=== PATIENT | male | born 1945 | race Caucasian/White ===

== ENCOUNTER 2020-02-01 23:22 | Emergency (ER) | payer MEDICARE, BC ==
[~2020-02-01] VITALS: Ht 172.7 cm; Wt 74.8 kg
--- NOTE | 2020-02-01 23:31 | NUR ---
PT CAME TO THE ER C/O RFA WOUND W/ ABSCESS AND SWELLING X 2 DAYS. PT AAOX4, VSS, RESPIRATIONS EVEN AND UNLABORED ON RA W/ NAD NOTED. PT CONNECTED TO THE MONITOR AND POX.
--- NOTE | 2020-02-01 23:36 | NUR ---
DR PARSONS AT BEDSIDE FOR EVAL
[2020-02-01] MEDS ORDERED: CEFTRIAXONE 1GM BAG (ER ONLY) 50 ML IV ONE (23:48)
[2020-02-01] MEDS ORDERED: TDAP [DIPH/PERTUSSIS/TET] 0.5 ML VIAL IM ONE (23:49)
[2020-02-01] MEDS ORDERED: VANCOMYCIN 1 GM VIAL ONE (23:49)
[2020-02-02] MEDS ORDERED: TDAP [DIPH/PERTUSSIS/TET] 0.5 ML VIAL IM ONE
[2020-02-02] MEDS ORDERED: CEFTRIAXONE 1 G in IV D5W 50 ML IV ONE ×2
[2020-02-02] MEDS ORDERED: VANCOMYCIN 1 GM in IV D5W 250 ML IV ONE ×2
[2020-02-02 00:08] LABS: BASOPHILS % (AUTO) 0.5 % (0.0-2.0); EOSINOPHILS % (AUTO) 1.2 % (0.0-6.0); HEMATOCRIT 42 % (39-51); HEMOGLOBIN 14.1 g/dL (13.5-17.5); LYMPHOCYTES # (AUTO) 1.5 /CMM (0.8-4.8); LYMPHOCYTES % (AUTO) 15.2 % (20.0-44.0); MEAN CORPUSCULAR HGB CONC 33 g/dl (31.0-36.0); MEAN CORPUSCULAR VOLUME 96 fL (80-96); MONOCYTES # (AUTO) 1.1 /CMM (0.1-1.30); NEUTROPHILS # (AUTO) 6.9 /CMM (1.8-8.9); NEUTROPHILS % (AUTO) 72.1 % (43.0-81.0); PLATELET COUNT (AUTO) 169 /CMM (150-450); RED BLOOD CELL COUNT(AUTO) 4.41 MIL/uL (4.5-6.0); WHITE BLOOD COUNT (AUTO) 9.6 K/uL (4.3-11.0)
[2020-02-02 01:34] VITALS: BP 147/84
--- NOTE | 2020-02-02 01:34 | NUR ---
Patient discharged to home in stable condition. Written and verbal after care instructions given. Patient verbalizes understanding of instruction.IV removed. Catheter intact and site benign. Pressure and 4x4 applied to site. No bleeding noted.
[2020-02-03] MEDS ORDERED: ATOR10TA PO (15:03)
[2020-02-03] MEDS ORDERED: CEPH500C2 PO (15:03)
[2020-02-03] MEDS ORDERED: SULF1TAB48 PO (15:03)
== END 2020-02-02 01:34 | disposition home or self-care (01) ==
LOC: ER 23:25
DX: L03.113 Cellulitis of right upper limb (principal); L08.89 Other specified local infections of the skin and subcutaneous tissue; Z98.890 Other specified postprocedural states
CPT/HCPCS: 36415; 85025; 85610; 87040 ×2; 90471; 90715; 96365; 96367; 99284; J0696; J3370; J7060

== ENCOUNTER 2020-02-03 13:02 | Emergency (ER) | payer MEDICARE, BC ==
[~2020-02-03] VITALS: Ht 172.7 cm; Wt 74.8 kg
[2020-02-03] MEDS: LIDOCAINE 1%-EPI 1:100,000 20 ML VIAL TP ONE (14:30)
[2020-02-03] MEDS: VANCOMYCIN 1 GM in IV D5W 250 ML IV ONE (14:30)
[2020-02-03 14:44] LABS: BASOPHILS # (AUTO) 0.1 /CMM (0.0-0.2); BASOPHILS % (AUTO) 0.7 % (0.0-2.0); EOSINOPHILS % (AUTO) 0.8 % (0.0-6.0); HEMATOCRIT 43 % (39-51); HEMOGLOBIN 14.2 g/dL (13.5-17.5); LYMPHOCYTES # (AUTO) 1.4 /CMM (0.8-4.8); MEAN CORPUSCULAR HGB CONC 33 g/dl (31.0-36.0); MEAN CORPUSCULAR VOLUME 97 fL (80-96); MONOCYTES # (AUTO) 0.9 /CMM (0.1-1.30); MONOCYTES % (AUTO) 8.8 % (2.0-12.0); NEUTROPHILS # (AUTO) 7.4 /CMM (1.8-8.9); NEUTROPHILS % (AUTO) 75.7 % (43.0-81.0); PLATELET COUNT (AUTO) 170 /CMM (150-450); RED BLOOD CELL COUNT(AUTO) 4.46 MIL/uL (4.5-6.0); WHITE BLOOD COUNT (AUTO) 9.8 K/uL (4.3-11.0)
--- NOTE | 2020-02-03 14:44 | NUR ---
CALLED PHARMACY FOR IV ANTIBIOTIC.
[2020-02-03 14:51] LABS: CALCIUM, SERUM 8.7 mg/dL (8.5-10.1); CREATININE 1.3 mg/dL (0.6-1.3); POTASSIUM 4.3 mmol/L (3.5-5.1)
[2020-02-03 14:56] LABS: ALBUMIN 3.7 g/dL (3.4-5.0); BILIRUBIN,DIRECT 0.1 mg/dL (0.0-0.2); BILIRUBIN,TOTAL 0.3 mg/dL (0.2-1.0); TOTAL PROTEIN, SERUM 7.1 g/dL (6.4-8.2)
[2020-02-03] MEDS ORDERED: LIDOCAINE 1%-EPI 1:100,000 20 ML VIAL ONE (14:58)
[2020-02-03] MEDS ORDERED: SULF1TAB48 PO (15:03)
[2020-02-03] MEDS ORDERED: ATOR10TA PO (15:03)
[2020-02-03] MEDS ORDERED: CEPH500C2 PO (15:03)
[2020-02-03] MEDS: CEFEPIME 1 GM in IV D5W 50 ML IV ONE (15:04)
--- NOTE | 2020-02-03 15:06 | NUR ---
Patient awake alert non distress to Ct
[2020-02-03] MEDS ORDERED: IV NS 0.9% 250 ML IV ONE (15:08)
[2020-02-03] MEDS ORDERED: CT SWABBABLE VALVE TRANS SET 1 EA INFUS.SET MC ONE (15:08)
[2020-02-03] MEDS ORDERED: IOHEXOL-300 100 ML VIAL IV ONE (15:08)
--- NOTE | 2020-02-03 16:52 | NUR ---
Removed helplock RAC noted catgh intact no edema no pain agrees to follow pmd in 2 days verbalized understanding
--- NOTE | 2020-02-03 16:52 | NUR ---
Patient discharged to home in stable condition. Written and verbal after care instructions given. Patient verbalizes understanding of instruction.
[2020-02-03 16:53] VITALS: BP 134/78
== END 2020-02-03 16:54 | disposition home or self-care (01) ==
LOC: ER 13:03
DX: L02.413 Cutaneous abscess of right upper limb (principal); L03.113 Cellulitis of right upper limb; Z98.890 Other specified postprocedural states; Z79.899 Other long term (current) drug therapy
CPT/HCPCS: 10060; 36415; 73201; 80048; 80076; 83605; 85025; 85730; 87040 ×2; 93005; 96365; 96366; 96368; 99285; A6403; A6407; J0692; J3370; J3490; J7050; J7060; Q9967

== ENCOUNTER 2020-02-05 09:24 | Emergency (ER) | payer MEDICARE, BC ==
[~2020-02-05] VITALS: Ht 172.7 cm; Wt 74.8 kg
[~2020-02-05 09:24] MED LIST: ATOR10TA PO; CEPH500C2 PO; SULF1TAB48 PO
[2020-02-05 09:25] VITALS: BP 135/81
--- NOTE | 2020-02-05 09:45 | NUR ---
ER BED 11 PT CAME IN CHIEFT COMPLAINT OF NONHEALING WOUND TO R FOREARM. REDNESS AND TENDERNESS NOTED ON PERIWOUND AREA. VS CHECKED. STABLE. AWAITING TO BE SEEN BY .
--- NOTE | 2020-02-05 10:00 | NUR ---
WOUND CARE/MD PT WAS SEEN BY . WOUND CARE DONE.
--- NOTE | 2020-02-05 10:07 | NUR ---
DISCHARGE Patient discharged to home in stable condition. Written and verbal after care instructions given. Patient verbalizes understanding of instruction.
== END 2020-02-05 10:07 | disposition home or self-care (01) ==
LOC: ER 09:25
DX: L03.113 Cellulitis of right upper limb (principal); Z98.890 Other specified postprocedural states; Z79.899 Other long term (current) drug therapy